=== PATIENT | male | born 1985 | race Two or more races ===

== ENCOUNTER 2019-07-27 13:36 | Emergency (ER) | payer OTHER ==
[~2019-07-27] VITALS: Ht 177.8 cm; Wt 74.8 kg
[2019-07-27 13:50] VITALS: BP 140/84
--- NOTE | 2019-07-27 13:50 | NUR ---
ED Nurse Note: Pt walked in to ED for c/o stool leaking from rectum. pt has a colostomy to left ABD.
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
--- NOTE | 2019-07-27 14:22 | NUR ---
ED Nurse Note: x ray at bedside.
--- NOTE | 2019-07-27 14:46 | Diagnostic Imaging Report ---
EXAM: XR Abdomen, 2 Views CLINICAL HISTORY: ABD DIST TECHNIQUE: Frontal view of the abdomen/pelvis with upright view of the abdomen. COMPARISON: None FINDINGS: Hardware: None. Abdomen: Nonobstructive bowel gas pattern. No free air. Bones: Intramedullary kofi and screws partially visualized in the right femur. Probable old fracture deformity or postsurgical deformity of the proximal left femur. Soft tissues: Clips/staple projected over the left pelvis. Lower chest: Normal. IMPRESSION: No acute abnormality.
[2019-07-27 14:52] VITALS: BP 132/87
--- NOTE | 2019-07-27 14:52 | NUR ---
ER DISCHARGE NOTE: Patient is cleared to be discharged per ERMD, pt is aox4, on room air, with stable vital signs. pt was given dc and prescription instructions, pt was able to verbalize understanding, pt id band removed without complications. pt is able to ambulate with steady gait. pt took all belongings.
== END 2019-07-27 14:52 | disposition home or self-care (01) ==
LOC: EMR 14:20
DX: R19.4 Change in bowel habit (principal); Z93.2 Ileostomy status; Z88.8 Allergy status to other drugs, medicaments and biological substances
CPT/HCPCS: 74018; Z7502; 99283